=== PATIENT | female | born 1990 | race Caucasian/White ===

== ENCOUNTER → 2018-08-16 14:33 | Outpatient (CLI) | payer MEDICAID, SELFPAY ==
[2018-08-16 18:15] LABS: Chlamydia Trachomatis by PCR Negative (Negative); Neisserai gonorrhoeae by PCR Negative (Negative); Probe Check PASS; Sample Adequacy Control PASS; Specimen Processing Control PASS
[2018-08-23 14:19] LABS: HPV Reflexed? NOT INDICATED
== END ==
PROVIDERS: Visit Provider Obstetrics & Gynecology
DX: Z11.3 Encounter for screening for infections with a predominantly sexual mode of transmission (principal); Z12.4 Encounter for screening for malignant neoplasm of cervix
CPT/HCPCS: 87491; 87591; 88175; G0145

== ENCOUNTER → 2018-09-05 10:24 | Outpatient (CLI) | payer MEDICAID, SELFPAY ==
[2018-09-05 10:58] LABS: Color, Urine Straw (Yellow); Glucose, Dipstick Normal (Normal); Ketone-Dipstick Negative (Negative); Leukocyte Esterase-Dipstick Negative /ul (Negative); Nitrite-Dipstick Negative (Negative); Occult Blood-Urine Negative /ul (Negative); Protein-Dipstick Negative (Negative); Specific Gravity, Urine 1.005 (1.002-1.030); Urine Bilirubin Dipstick Negative (Negative); Urine Clarity Clear (Clear); Urine Urobilinogen Normal (Normal)
[2018-09-05 11:06] LABS: Absolute Lymphocyte Count 1.92 X10^3/ul (0.83-4.51); Absolute Neutrophil Count 4.8 X10^3/uL (2.0-7.7); Basophil# 0.03 X10^3/uL; Basophil% 0.4 % (0-1); Eosinophil# 0.07 X10^3/uL; Eosinophils% 0.9 % (0-5); Hematocrit 38.6 % (37-47); Hemoglobin 13.2 g/dl (12.0-15.0); Lymphocyte # 1.92 X10^3/ul (4.0); Mean Corp Hgb Conc 34.2 g/gl (32-36); Mean Corpuscular Hgb 31.5 pg (27.0-32.0); Mean Corpuscular Volume 92.1 fL (81-99); Monocyte# 0.51 X10^3/uL; Monocyte% 6.9 % (0-10); Neutrophil # 4.84 X10^3/uL (2.7-7.7); Neutrophil % 65.5 % (47-70); Platelet Count 190 K/mm3 (150-450); RBC Distribution Width CV 12.3 % (11.6-14.6); RBC Distribution Width SD 40.4 fl (35.1-43.9); Red Blood Count 4.19 M/mm3 (4.2-5.4); White Blood Count 7.4 K/mm3 (4.4-11.0)
[2018-09-05 11:07] LABS: POSITIVE COUNT NO; POSITIVE DIFFERENTIAL NO; POSITIVE MORPHOLOGY NO
[2018-09-05 11:20] LABS: Amphetamine Urine VISTA NEGATIVE (<1000 ng/mL); Barbiturate Urine VISTA NEGATIVE (< 200 ng/mL); Benzodiazepine Urine VISTA NEGATIVE (< 200 ng/mL); Cocaine Urine VISTA NEGATIVE (< 300 ng/mL); Ecstacy Urine VISTA NEGATIVE (< 500 ng/mL); Methadone Urine VISTA NEGATIVE (< 300 ng/mL); PCP Urine VISTA NEGATIVE (< 25 ng/mL); THC Urine VISTA POSITIVE (< 50 ng/mL)
[2018-09-05 11:31] LABS: COTININE Drug Screen Positive (<200 ng/mL); Vista UDS pH Range 6
[2018-09-05 11:42] LABS: Thyroid Stim Hormone (TSH) 0.81 uIU/mL (0.358-3.74)
[2018-09-05 14:10] LABS: HIV - WCH Non-Reactive (Nonreactive); Rubella IgG 36.9 IU/mL
[2018-09-06 12:32] LABS: HEPATITIS B SURFACE AG Negative (Negative); Hep C Antibodies <0.1 s/co ratio (0.0-0.9)
[2018-09-08 05:27] LABS: Prenatal RPR NONREACTIVE (NONREACTIVE)
== END ==
PROVIDERS: Visit Provider Obstetrics & Gynecology
DX: Z34.81 Encounter for supervision of other normal pregnancy, first trimester (principal)
CPT/HCPCS: 36415; 80307; 81002; 84443; 85025; 86703; 86762; 86803; 87340

== ENCOUNTER → 2018-12-13 16:21 | Outpatient (CLI) | payer MEDICAID, SELFPAY ==
[2015-02-25 14:26] VITALS: BMI 21.7
[2018-12-13 17:20] LABS: Hematocrit 35.3 % (37-47); Hemoglobin 12.3 g/dl (12.0-15.0); Mean Corp Hgb Conc 34.8 g/gl (32-36); Mean Corpuscular Volume 94.6 fL (81-99); Platelet Count 224 K/mm3 (150-450); RBC Distribution Width CV 12.7 % (11.6-14.6); RBC Distribution Width SD 42.6 fl (35.1-43.9); Red Blood Count 3.73 M/mm3 (4.2-5.4); White Blood Count 10.1 K/mm3 (4.4-11.0)
[2018-12-13 17:33] LABS: Scan Indicated on CBC? Y/N NO
[2018-12-13 17:43] LABS: Glucose Challenge Gest 1H 50g 124 mg/dL (70-140)
--- OUTSIDE RECORDS SUMMARY | 2019-02-14 18:47 | XMS RPT_ITS ---
:1990 Author Organization OHIP Care Team Providers Name Role Phone ASSESSMENT, HEALTH RISK Attending Unavailable ASSESSMENT, HEALTH RISK Referring Unavailable Zane Lewis Attending Unavailable ASSESSMENT, HEALTH RISK Attending Unavailable Dominik Gray Primary Care Unavailable ASSESSMENT, HEALTH RISK Attending Unavailable Dominik Gray Primary Care Unavailable Tonja Sanchez Attending Unavailable Dominik Gray Referring Unavailable Zane Lewis Attending Unavailable Zane Lewis Attending Unavailable PROBLEMS PROBLEMS DATE TYPE CONDITION / CODE ATTENDING STATUS SOURCE 12/13/2018 Unknown Z34.83 - Encounter Zane Lewis Active [facility] for supervision of Community other normal Hospital , third Repository trimester / Z34.83(ICD-10) 09/08/2018 Unknown Z34.81 - Encounter SealZane cruz Active [place] for supervision of Community other normal Hospital , first Repository trimester / Z34.81(ICD-10) 09/07/2018 Unknown Z11.3 - Encounter HughanthonyZane Active [place] for screening for Community infections with a Hospital predominantly Repository sexual mode of transmission / Z11.3(ICD-10) PROCEDURES PROCEDURES No Procedure Records FoundRESULTS RESULTS CBC-COMPLETE BLOOD CNT Collected: 12/13/2018 Status: F Source: [place] NO DIFF 4:35 PM [facility] REPOSITORY TYPE CODE TESTS RESULT OUT OF RANGE REFERENCE UNITS LAB L100.1000 4.4-11.0 K/mm3 Normal WBC 10.1 LAB L100.1200 4.2-5.4 M/mm3 Low RBC 3.73 LAB L100.1300 12.0-15.0 g/dl Normal HGB 12.3 LAB L100.1400 37-47 % Low HCT 35.3 LAB L100.1500 81-99 fL Normal MCV 94.6 LAB L100.1600 27.0-32.0 pg High MCH 33.0 LAB L100.1700 32-36 g/gl Normal MCHC 34.8 LAB L100.1810 11.6-14.6 % Normal RDW CV 12.7 LAB L100.1820 35.1-43.9 fl Normal RDW SD 42.6 LAB L100.1900 150-450 K/mm3 Normal PLT 224 LAB L100.2000 6.2-12.0 fl Normal MPV 11.0 Performed By: #### L100.0500 #### [facility] [address] [place], [place], [id number] GLUCOSE CHALLENGE GEST Collected: 12/13/2018 Status: F Source: [place] 1H 50G 4:35 PM [facility] REPOSITORY TYPE CODE TESTS RESULT OUT OF RANGE REFERENCE UNITS LAB L501.0250 70-140 mg/dL Normal GLU GEST 124 50g 1H Performed By: #### L501.0250 #### [facility] [address] [place], [address] HEP B SURFACE Collected: 12/13/2018 Status: F Source: [place] ANTIBODIES 3:55 PM [facility] REPOSITORY TYPE CODE TESTS RESULT OUT OF RANGE REFERENCE UNITS LAB L3100.0528 . Normal Hep B Reactive Morgan AB Result Comment: Non Reactive: Inconsistent with immunity, less than 10 mIU/mL Reactive: Consistent with immunity, greater than 9.9 mIU/mL Performed at: [facility] [id number] Bottom Man: Allen Buchanan PhD, Phone: [phone] Performed By: #### L3100.0528 #### [facility] (refer to report for specific site) refer to report for address and phone number URINE DRUG SCREEN Collected: 09/05/2018 Status: F Source: [place]E (VISTA) 10:28 AM [facility] REPOSITORY Order Comment: List of Drugs Taken or Suspected? UNK TYPE CODE TESTS RESULT OUT OF RANGE REFERENCE UNITS LAB L505.0075 TO BE Normal CONFIRMED Result Comment: CONFIRMATORY TESTING FOR ALL POSITIVE URINE DRUG SCREEN RESULTS WILL ONLY BE SENT OUT UPON PHYSICIAN ORDER. VISTA Urine Drug Screen methods provide only preliminary analytical test results. A more specific alternate chemical method must be used in order to obtain a confirmed analytical result. Gas chromatography/mass spectrometery (GC/MS) is the preferred confirmatory method. Clinical consideration and professional judgement should be applied to any drug of abuse test result, particularly when preliminary positive results are used. URINE TCA TESTING MUST BE ORDERED SEPARATELY. USE TEST MNEMONIC: [facility] LAB L505.5015 <1000 ng/mL AMPHETAMINES Normal NEGATIVE LAB L505.5025 < 200 ng/mL BARBITIURATES Normal NEGATIVE LAB L505.5035 < 200 ng/mL BENZODIAZIPINE Normal NEGATIVE LAB L505.5045 < 300 ng/mL COCAINE Normal NEGATIVE LAB L505.5055 < 500 ng/mL ECSTACY Normal NEGATIVE LAB L505.5065 < 300 ng/mL METHADONE Normal NEGATIVE LAB L505.5075 < 300 ng/mL OPIATES Normal NEGATIVE LAB L505.5085 < 25 ng/mL PCP Normal NEGATIVE LAB L505.5095 < 50 ng/mL High THC POSITIVE LAB L505.5005 VISTA UDS PH 6 Normal Performed By: #### L505.5000, L505.6240 #### [facility] [address] [place], [place], [address] NICOTINE URINE DRUG Collected: 09/05/2018 Status: F Source: [place] SCREEN 10:28 AM [facility] REPOSITORY Order Comment: List of Drugs Taken or Suspected? UNK TYPE CODE TESTS RESULT OUT OF RANGE REFERENCE UNITS LAB L505.6250 TO BE Normal CONFIRMED Result Comment: CONFIRMATORY TESTING FOR ALL POSITIVE URINE DRUG SCREEN RESULTS WILL ONLY BE SENT OUT UPON PHYSICIAN ORDER. The results of Urine Drug Screen methods provide only preliminary analytical test results. A more specific alternate chemical method must be used in order to obtain a confirmed analytical result. Gas chromatography/mass spectrometery (GC/MS) is the preferred confirmatory method. Clinical consideration and professional judgement should be applied to any drug of abuse test result, particularly when preliminary positive results are used. LAB L505.6270 <200 ng/mL High COT DRG Positive SCREEN Result Comment: Cotinine is the first-stage metabolite of Nicotine. Performed By: #### L505.5000, L505.6240 #### [facility] [address] [place], [address] URINALYSIS, ROUTINE Collected: 09/05/2018 Status: F Source: [place]E (DIPSTICK) 10:28 AM [facility] REPOSITORY Order Comment: How was Urine Obtained? Urine, Random TYPE CODE TESTS RESULT OUT OF RANGE REFERENCE UNITS LAB L400.3000 Yellow COLOR Normal Straw LAB L400.3050 Clear Normal CLARITY Clear LAB L400.3200 Normal mg/dl Normal GLUCOSE, UR Normal LAB L400.3300 Negative mg/dL Normal BILIRUBIN URINE Negative LAB L400.3400 Negative mg/dl Normal KETONE UR Negative LAB L400.3465 1.002-1.030 Normal SP.GR. DIPSTX 1.005 LAB L400.3550 5.0 - 8.0 pH UR Normal 7.0 LAB L400.3600 Negative mg/dl PROT Normal DIPSTX Negative LAB L400.3700 Normal mg/dl Normal UROBILI Normal LAB L400.3750 Negative Normal NITRITE UR Negative LAB L400.3780 Negative /ul Normal OCCULT BLOOD-UR Negative LAB L400.3800 Negative /ul LEUK Normal ESTERASE Negative Performed By: #### L400.2010 #### [facility] [address] [place], [place], [id number] CBC W/DIFF, AUTOMATED Collected: 09/05/2018 Status: F Source: [place]AYE 10:28 AM [facility] REPOSITORY TYPE CODE TESTS RESULT OUT OF RANGE REFERENCE UNITS LAB L100.1000 4.4-11.0 K/mm3 Normal WBC 7.4 LAB L100.1200 4.2-5.4 M/mm3 Low RBC 4.19 LAB L100.1300 12.0-15.0 g/dl Normal HGB 13.2 LAB L100.1400 37-47 % Normal HCT 38.6 LAB L100.1500 81-99 fL Normal MCV 92.1 LAB L100.1600 27.0-32.0 pg Normal MCH 31.5 LAB L100.1700 32-36 g/gl Normal MCHC 34.2 LAB L100.1810 11.6-14.6 % Normal RDW CV 12.3 LAB L100.1820 35.1-43.9 fl Normal RDW SD 40.4 LAB L100.1900 150-450 K/mm3 Normal PLT 190 LAB L100.2000 6.2-12.0 fl Normal MPV 11.0 LAB L100.2100 47-70 % Normal NEUT% 65.5 LAB L100.2200 19-41 % Normal LY% 26.0 LAB L100.2300 0-10 % Normal MONO% 6.9 LAB L100.2400 0-5 % Normal EO% 0.9 LAB L100.2500 0-1 % Normal BASO% 0.4 LAB L100.2550 0.0-0.9 % Normal IM GRAN % 0.300 Result Comment: IG% - Immature Granulocytes (promyelocytes, myelocytes and metamyelocytes) > 1% indicates that a LEFT SHIFT is Present. LAB L100.2620 2.0-7.7 X10 3/uL Normal Absolute Neut 4.8 LAB L100.2720 0.83-4.51 X10 3/ul Normal Absolute Lymph 1.92 Performed By: #### L100.0100 #### [facility] [address] [place], [place], [address] THYROID STIM HORMONE Collected: 09/05/2018 Status: F Source: KAYE (TSH) 10:28 AM [facility] REPOSITORY TYPE CODE TESTS RESULT OUT OF RANGE REFERENCE UNITS LAB L501.9520 0.358-3.74 uIU/mL Normal TSH 0.81 Performed By: #### L501.9520 #### [facility] [address] [place], [place], [id number] T AND S-NO Collected: 09/05/2018 Status: F Source: K[place]E CHARGE W/PNP 10:28 AM [facility] REPOSITORY Order Comment: Reason for Type AND Screen/Red Cells: Surgery? N TYPE CODE TESTS RESULT OUT OF RANGE REFERENCE UNITS LAB B10.0800 O Normal BLOOD POSITIVE TYPE GEL LAB B100.4050 Normal Ab SCREEN NEGATIVE GEL Performed By: #### B100.7550 #### [facility] [facility] [facility] [id number] RUBELLA IGG Collected: 09/05/2018 Status: F Source: [place]AYE 10:28 AM [facility] REPOSITORY TYPE CODE TESTS RESULT OUT OF RANGE REFERENCE UNITS LAB L509.4000 IU/mL Normal Rubella IgG 36.9 Result Comment: Antibody results Interpretation of Immune Status < 5 IU/ml Presumed Non-immune 5 - < 10 IU/ml Equivocal > or = 10 IU/ml Presumed Immune Performed By: #### L509.4000, L3890.6005 #### [facility] [facility] [place], [place], [id number] HIV - WCH Collected: 09/05/2018 Status: F Source: [place] 10:28 AM [facility] REPOSITORY TYPE CODE TESTS RESULT OUT OF RANGE REFERENCE UNITS LAB L3890.6005 Nonreactive Normal HIV - [facility] Non-Reactive Performed By: #### L509.4000, L3890.6005 #### [facility] [address] [place], [place], [address] HEPATITIS B SURFACE Collected: 09/05/2018 Status: F Source: KAYE AG 10:28 AM [facility] REPOSITORY TYPE CODE TESTS RESULT OUT OF RANGE REFERENCE UNITS LAB L3100.0400 Negative Normal HB Negative SURF AG Result Comment: Performed at: - [facility] [address] [id number] Bottom Man: Allen Buchanan PhD, Phone: [phone] Performed By: #### L3100.0390, L3100.0625 #### [facility] (refer to report for specific site) refer to report for address and phone number HEPATITIS C ANTIBODIES Collected: 09/05/2018 Status: F Source: CL[place] 10:28 AM [facility] REPOSITORY TYPE CODE TESTS RESULT OUT OF RANGE REFERENCE UNITS LAB L3100.0650 0.0-0.9 s/co ratio Normal HEP C AB <0.1 Result Comment: Negative: < 0.8 Indeterminate: 0.8 - 0.9 Positive: > 0.9 The CDC recommends that a positive HCV antibody result be followed up with a HCV Nucleic Acid Amplification test (840990). Performed By: #### L3100.0390, L3100.0625 #### [facility] (refer to report for specific site) refer to report for address and phone number RPR Collected: 09/05/2018 Status: F Source: [place] 10:28 AM [facility] REPOSITORY TYPE CODE TESTS RESULT OUT OF REFERENCE UNITS RANGE LAB L700.5100 NONREACTIVE Normal RPR NONREACTIVE Performed By: #### L700.5100 #### [facility] [address] [place], [place], [address] CT/NG WCH BY PCR Collected: 08/16/2018 Status: F Source: [place] 2:00 PM [facility] REPOSITORY Order Comment: CYTOLOGY INFORMATION: - CLINICAL INFORMATION: - DATE LMP/MENOPAUSE: 05-30-18 LMP - COLLECTION VIAL: Thin Prep Vial - FIBER PICKER SOURCE: CERVICAL/ENDOCERVICAL - COLLECTION TECHNIQUE: BRUSH/SPATULA TYPE CODE TESTS RESULT OUT OF RANGE REFERENCE UNITS LAB L8200.2100 Negative Normal Chlam Negative Trac PCR LAB L8200.2200 Negative Normal NG by Negative PCR Performed By: #### L8200.2000 #### [facility] [address] [place], [place], [address] PAP I-G W/RFX HRHPV Collected: 08/16/2018 Status: F Source: KAYE 2:00 PM [facility] REPOSITORY Order Comment: CYTOLOGY INFORMATION: - CLINICAL INFORMATION: - DATE LMP/MENOPAUSE: 05-30-18 LMP - COLLECTION VIAL: Thin Prep Vial - FIBER PICKER SOURCE: CERVICAL/ENDOCERVICAL - COLLECTION TECHNIQUE: BRUSH/SPATULA Specimen Comment: [id number] Specimen Comment: Source.............Cervix;Endocervix Specimen Comment: LMP / Prev Treat...[id number] Specimen Comment: Other.............. Specimen Comment: No. of containers..01 ThinPrep Vial TYPE CODE TESTS RESULT OUT OF RANGE REFERENCE UNITS LAB L7400.0800 . Normal DIAGN Comment Result Comment: NEGATIVE FOR INTRAEPITHELIAL LESION AND MALIGNANCY. FUNGAL ORGANISMS MORPHOLOGICALLY CONSISTENT WITH ARIANA SPECIES ARE PRESENT. LAB L7400.0900 . Normal ADEQ Comment Result Comment: Satisfactory for evaluation. Endocervical and/or squamous metaplastic cells (endocervical component) are present. LAB L7400.1400 . Normal PERFORM Comment Result Comment: Nik Morrison, Supervisor [employer] (ASCP) LAB L7400.2575 . Normal TEST METHOD Comment Result Comment: This liquid based ThinPrep(R) pap test was screened with the use of an image guided system. LAB L7400.2600 . Normal . COMM LAB L7400.2700 . Normal PAPSMR Comment Result Comment: The Pap smear is a screening test designed to aid in the detection of premalignant and malignant conditions of the uterine cervix. It is not a diagnostic procedure and should not be used as the sole means of detecting cervical cancer. Both false-positive and false-negative reports do occur. LAB L7400.2800 . Normal HPV RFLX Comment Result Comment: The HPV DNA reflex criteria were not met with this specimen result therefore, no HPV testing was performed. Performed at: [facility] [id number] Bottom Man: Sailaja Cordoba MD, Phone: [phone] Performed By: #### L7400.0350 #### [facility] (refer to report for specific site) refer to report for address and phone number HEP B SURFACE Collected: 03/01/2018 Status: F Source: KAYE ANTIBODIES EMP 11:05 AM [facility] TYPE CODE TESTS RESULT OUT OF RANGE REFERENCE UNITS LAB L3100.0537 . Normal Hep B Non Reactive Morgan AB Result Comment: Non Reactive: Inconsistent with immunity, less than 10 mIU/mL Reactive: Consistent with immunity, greater than 9.9 mIU/mL Performed at: [facility] [id number] Bottom Man: Allen Buchanan PhD, Phone: [phone] Performed By: #### L3100.0537 #### [facility] (refer to report for specific site) refer to report for address and phone number ALLERGIES ALLERGIES DATE TYPE / CODE NAME / CODE REACTION SEVERITY SOURCE 02/06/2015 Drug No Known Unknown [facility] Allergy/4160 Allergies/F00 Hospital [address]47(SNOMED 4981076(RXNOR Repository CT) M) ENCOUNTERS ENCOUNTERS ADMIT/DISCHARGE ACCOUNT ADMITTING ENCOUNTER LOCATION SOURCE NUMBER CLASS 12/13/2018 [id number] Ambulatory [place] [address] [place] ing:LABSPEC Repository 12/13/2018 [id number] [place] ing:LAB Repository 09/05/2018 [id number] Ambulatory [place] [address] [place] ing:WOBLAB Repository 08/16/2018 [id number] Ambulatory [place] ing:[facility] Repository 07/28/2018 [id number] Ambulatory [facility] [place] [facility] Hospital Repository 03/01/2018 [id number] Ambulatory [place] [address] [place] ing:EMPH Repository 01/30/2018 [id number] Ambulatory [place] ing:EMPH Repository PAYERS PAYERS ENCOUNTER GUARANTOR PAYER SUBSCRIBER SOURCE 12/13/2018 HENRY [id number] Primary NOT GIVENUNK [place] [facility] Insurance:SELF PAY [facility] [address]Qdo: (330) Number: Effective Repository [phone] () Date:2018-12-13 12/13/2018 HENRY [id number] Primary NOT GIVENUNK [place] [facility] Insurance:SELF PAY [facility] [address]Ieb: (330) Number: Effective Repository [phone] () Date:2018-12-13 09/05/2018 HENRY Ramirez [id number] Primary Insurance:[facility]RY [facility] [place] [place] Number: [id number] [address]Tqi: [phone] Repository [phone] () Date:[id number] [address] [address]EA: 09/05/2018 Secondary NOT GIVENUNK [place] Insurance:SELF PAY [facility] Number: Effective Repository Date:2018-09-05 08/16/2018 HENRY Ramirez [id number] Primary Insurance:[facility] HENRY Restrepo [facility] [place] Number: [id number] [address]Pjq: [phone] Repository [phone] () Date:[id number] [address] [address]Z: 08/16/2018 Secondary NOT GIVENUNK [place] Insurance:SELF PAY [facility] Number: Effective Repository Date:2018-08-16 07/28/2018 Henry Ashley [id number] Primary NOT GIVENUNK [place] [address] Insurance:SELF PAY [address] [address]Osi: (330) Number: Effective Repository [phone] () Date:2018-06-29 03/01/2018 Henry Ramirez [id number] Primary NOT GIVENUNK [place] [address] Insurance:SELF PAY [address] [address]Blo: (330) Number: Effective Repository [phone] () Date:2018-03-01 01/30/2018 Henry Ashley [id number] Primary NOT GIVENUNK [place] [address] Insurance:SELF PAY [address] [address]Ofy: (330) Number: Effective Repository [phone] () Date:2018-01-28
== END ==
PROVIDERS: Visit Provider Obstetrics & Gynecology
DX: Z34.83 Encounter for supervision of other normal pregnancy, third trimester (principal)
CPT/HCPCS: 36415; 82950; 85027

== ENCOUNTER → 2018-12-28 13:47 | Outpatient (CLI) | payer MEDICAID, SELFPAY ==
[2015-02-25 14:26] VITALS: BMI 21.7
== END ==
PROVIDERS: Visit Provider Obstetrics & Gynecology
DX: O23.43 Unspecified infection of urinary tract in pregnancy, third trimester (principal); Z3A.00 Weeks of gestation of pregnancy not specified
CPT/HCPCS: 87086

== ENCOUNTER → 2019-01-31 14:25 | Outpatient (CLI) | payer MEDICAID, SELFPAY | PROVIDERS: Visit Provider Obstetrics & Gynecology | DX: Z36.85 Encounter for antenatal screening for Streptococcus B (principal) | CPT/HCPCS: 87081 ==

== ENCOUNTER 2019-02-28 07:05 | Inpatient (IN) | payer MEDICAID, SELFPAY ==
[2015-02-25 14:26] VITALS: BMI 21.7
[2019-02-28 07:22] VITALS: BMI 26.6
[2019-02-28 07:58] LABS: Amphetamine Urine VISTA NEGATIVE (<1000 ng/mL); Barbiturate Urine VISTA NEGATIVE (< 200 ng/mL); Benzodiazepine Urine VISTA NEGATIVE (< 200 ng/mL); Cocaine Urine VISTA NEGATIVE (< 300 ng/mL); Ecstacy Urine VISTA NEGATIVE (< 500 ng/mL); Methadone Urine VISTA NEGATIVE (< 300 ng/mL); PCP Urine VISTA NEGATIVE (< 25 ng/mL); THC Urine VISTA POSITIVE (< 50 ng/mL); Vista UDS pH Range 7
[2019-02-28] MEDS: Lactated Ringers 1,000 ML 50 ML IV ×3 (08:15→17:35)
[2019-02-28] MEDS: Oxytocin 30 units/NS 500 ml 30 UNITS/500 ML IV.SOLN IV (08:27)
[2019-02-28 08:33] LABS: Absolute Lymphocyte Count 2.47 X10^3/ul (0.83-4.51); Absolute Neutrophil Count 5.4 X10^3/uL (2.0-7.7); Basophil# 0.02 X10^3/uL; Basophil% 0.2 % (0-1); Eosinophil# 0.12 X10^3/uL; Eosinophils% 1.4 % (0-5); Hematocrit 38.1 % (37-47); Hemoglobin 13.1 g/dl (12.0-15.0); Lymphocyte # 2.47 X10^3/ul (4.0); Lymphocyte % 28.5 % (19-41); Mean Corp Hgb Conc 34.4 g/gl (32-36); Mean Corpuscular Hgb 32.1 pg (27.0-32.0); Mean Corpuscular Volume 93.4 fL (81-99); Mean Platelet Vol. 10.8 fl (6.2-12.0); Monocyte# 0.61 X10^3/uL; Neutrophil # 5.41 X10^3/uL (2.7-7.7); Neutrophil % 62.4 % (47-70); Platelet Count 201 K/mm3 (150-450); RBC Distribution Width CV 13.4 % (11.6-14.6); RBC Distribution Width SD 45.4 fl (35.1-43.9); Red Blood Count 4.08 M/mm3 (4.2-5.4); White Blood Count 8.7 K/mm3 (4.4-11.0)
[2019-02-28 08:36] LABS: POSITIVE COUNT NO; POSITIVE DIFFERENTIAL NO; POSITIVE MORPHOLOGY NO
[2019-02-28] MEDS: Nalbuphine 10 MG/ML Ampul IV (11:37)
[2019-02-28] MEDS: fentaNYL-bupivacaine (epidural) 100 ML BAG EPIDURAL ×2 (14:08→17:41)
[2019-02-28] MEDS: Ondansetron 4 MG/2 ML Vial IV (15:04)
[2019-02-28] MEDS: fentaNYL 100 MCG/2 ML Ampul EPIDURAL (17:31)
--- NOTE | 2019-02-28 18:32 | PCM.PN.OB ---
Subjective: Now more comfortable. Objective: Afeb VSS FHR tracing CAT 1. - Physical Exam General: Alert, Oriented x3, Cooperative, No apparent distress Cardiovascular: Regular rate, Regular Rhythm Abdomen: Soft, Non Tender, Gravid, Appropriate for Gestational Age Extremities: No edema Skin: No rashes Neurological: Neuro grossly intact Psych/Mental Status: Normal Affect Comment: CE 9cm Weight: 160 lb 0.889 oz Body Mass Index (BMI) 26.6 Intake and Output for Last 24 Hours 02/26/19 02/27/19 02/28/19 23:59 23:59 23:59 Intake Total 2767 / 2767 Output Total 1700 / 1700 Balance 1067 / 1067 Laboratory Tests Past 24 Hrs 02/28/19 02/28/19 02/28/19 07:30 08:15 08:15 WBC 8.7 RBC 4.08 L Hgb 13.1 Hct 38.1 MCV 93.4 MCH 32.1 H MCHC 34.4 RDW 13.4 RDW Differential 45.4 H Plt Count 201 MPV 10.8 Immature Gran % (Auto) 0.500 Neut % (Auto) 62.4 Lymph % (Auto) 28.5 [place] % (Auto) 7.0 Eos % (Auto) 1.4 Baso % (Auto) 0.2 Absolute Neuts (auto) 5.4 Absolute Lymphs (auto) 2.47 Total Counted Not Reportable Urine Opiates Screen NEGATIVE Urine Methadone Screen NEGATIVE Ur Barbiturates Screen NEGATIVE Ur Phencyclidine Scrn NEGATIVE Ur Amphetamines Screen NEGATIVE U Methamphetamin-MDMA NEGATIVE U Benzodiazepines Scrn NEGATIVE Urine Cocaine Screen NEGATIVE U Cannabinoids Screen POSITIVE H Ur Drug Screen Comment Blood Type O POSITIVE Antibody Screen NEGATIVE Medical Necessity - Tobacco Use Smoking Status: Former smoker Assessment/Plan Progressing in labor. Expect to start pushing efforts soon.
--- NOTE | 2019-02-28 18:36 | DCINST_ITS ---
Discharge Diet: No Restrictions Discharge Activity: Return to Normal Activity Return to work on:: 04/30/19 May shower in (days): 0 May resume sexual activity in: 4-6 weeks Call your doctor if your incision/area has: Sudden Increased Bleeding, Foul Smelling Discharge Call your doctor if you observe: Fever of 101 or Higher, Inability to urinate, Inability to have a bowel movement, Using more than one pad per hour, Shortness of breath, Chest pain, Calf discomfort, Uncontrolled pain Cleanse incision/area with: Soap & Water Additional Instructions: If you experience any of the following, contact your healthcare provider. * Bleeding that soaks a pad every hour for 2 hours * Fever 100.4 or higher * Unrelieved incision or abdominal pain * Swelling, redness, discharge or bleeding from your incision or episiotomy site * Your incision begins to separate * Problems urinating (including inability to urinate or burning while urinating). * Visual changes * Severe headache * Flu-like symptoms * Pain or redness in one of both of your breasts * Pain, warmth, tenderness or swelling in your legs, especially the calf area * Frequent nausea and vomiting * Symptoms of depression or anxiety If you experience any of the following, call 911 or go to the nearest Emergency Room. * Chest pain * Problems breathing * Seizure activity * Partial or complete paralysis of a body part, slurred speech, weakness or drooping of the face, or a sudden inability to walk or hold your balance Allergies/Adverse Reactions: Allergies No Known Allergies Allergy (Verified 02/28/19 07:22) Medications to take at Discharge DiphenhydrAMINE [Benadryl] 50 mg PO QHS PRN PRN 02/28/19 Docusate Sodium [Colace] 100 mg PO BID 02/28/19 Ibuprofen 600 mg PO 4X/DAY #30 tab 02/28/19 Ondansetron HCl [Zofran] 4 mg PO Q6H PRN PRN 02/28/19 Vits [Prenatabs FA ] 1 tablet PO DAILY 02/28/19 The following prescriptions were given: Ibuprofen 600 mg PO 4X/DAY #30 tab Please Follow Up With: Zane Lewis MD When: 6 weeks Test Results: Test results from this visit will be discussed in further detail at your follow- up appointment, if applicable. Proposed Discharge Date: 03/02/19
[2019-02-28] MEDS: Oxytocin 30 units/NS 500 ml 30 UNITS/500 ML IV.SOLN 334 UNITS IV (19:19)
--- NOTE | 2019-02-28 19:31 | PCM.OPRPT ---
Vaginal Delivery Maternal Presentation: Elective Induction 39w1d ega admitted for elective induction of labor Method of Induction: Pitocin Amniotic Membrane Rupture Type: Artificial Rupture of Membrane time: 1200 Amniotic Fluid Description: Clear Final SERAFIN: 03/06/19 Final SERAFIN Source: US <20 weeks Gestational age: 39 Weeks and 1 Days Date of Procedure: 02/28/19 Pre-Operative Diagnosis: labor Post-Operative Diagnosis: same Surgery/ Procedure Performed: Spontaneous Vaginal Delivery Anesthesiologist: Corky Meek Type of Anesthesia: Epidural Description of Procedure: Progressed to FD then pushed for about 20 minutes to deliver a live male without complication. At delivery the nose and mouth were suctioned with a bulb suction. Delayed cord clamping was employed. Cord bloods were collected. The placenta wa delivered spontaneously intact. The uterus contracted well. Inspection revealed a small posterior vaginal/perineal tear which was repaired with 3-0 vicryl. Presentation: Vertex Placental Delivery Description: Spontaneous Placenta Disposition: [facility] Percentage of Placenta Abruption: 0 Cord Vessel Description: 3 Vessels Nuchal Cord Compression: Without compression Cord Entanglement: None Drain: Palafox to straight drain Estimated Blood Loss: 350cc Infant A gender: Male (1 minute): 7 (5 minute): 9 Episiotomy Description: None Laceration: Midline, Perineal Extension/lac, Vaginal Extension/lac, 1st degree Medications given after delivery: IV Pitocin Complications: None
[2019-02-28] MEDS: Oxytocin 30 units/NS 500 ml 30 UNITS/500 ML IV.SOLN 167 UNITS IV (19:49)
[2019-02-28] MEDS: Ibuprofen 600 MG Tablet PO (20:19)
[2019-02-28] MEDS: Acetaminophen 500 MG Tablet 1000 MG PO (21:08)
[2019-02-28] MEDS: 0.9% Saline Lock 10 ML Syringe IV (21:27)
[2019-02-28 23:54] VITALS: BP 114/68; PULSE 87; RESP 16; TEMP 36.2; O2SAT 98
[2019-02-28] MEDS: Senna/Docusate Sodium 1 Tablet PO (23:58)
[2019-02-28] MEDS: Hydrocortisone 2.5% Crm 1 APPLIC TOPICAL (23:58)
[2019-02-28] MEDS: oxyCODONE 5 MG Tablet PO (23:58)
[2019-03-01] MEDS: Ibuprofen 600 MG Tablet PO ×4 (02:35→21:47)
[2019-03-01 04:20] VITALS: BP 111/55; PULSE 87; RESP 16; TEMP 36.9; O2SAT 97
[2019-03-01] MEDS: oxyCODONE 5 MG Tablet PO ×4 (04:26→19:42)
[2019-03-01 05:35] LABS: Hemoglobin 10.1 g/dl (12.0-15.0); Mean Corp Hgb Conc 33.7 g/gl (32-36); Mean Corpuscular Hgb 31.8 pg (27.0-32.0); Mean Corpuscular Volume 94.3 fL (81-99); Mean Platelet Vol. 11.4 fl (6.2-12.0); Platelet Count 173 K/mm3 (150-450); RBC Distribution Width CV 12.8 % (11.6-14.6); Red Blood Count 3.18 M/mm3 (4.2-5.4)
[2019-03-01 05:38] LABS: Scan Indicated on CBC? Y/N NO
[2019-03-01] MEDS: Dibucaine 30 GM Tube 1 APPLIC TOPICAL (06:37)
[2019-03-01] MEDS: Acetaminophen 500 MG Tablet 1000 MG PO (06:37)
--- NOTE | 2019-03-01 07:43 | PCM.PROGNOTE ---
Subjective: Some vaginal/perineal soreness. Some lower abdominal cramping. Breast feeding. Lochia appropriate. Objective: Afeb VSS - Physical Exam General: Alert, Oriented x3, Cooperative, No apparent distress Lungs: Clear to auscultation, Normal air movement Cardiovascular: Regular rate, Regular Rhythm Abdomen: Soft, Non Tender, Non-Distended, - - Fundus firm nontender Extremities: No edema Psych/Mental Status: Normal Affect Comment: Lochia appropriate Vital Signs Temp Pulse Resp BP Pulse Ox 98.4 F 87 16 111/55 L 97 03/01/19 04:20 03/01/19 04:20 03/01/19 04:20 03/01/19 04:20 03/01/19 04:20 Oxygen Delivery Method Room Air Weight: 160 lb 0.889 oz Body Mass Index (BMI) 26.6 Intake and Output for Last 24 Hours 02/27/19 02/28/19 03/01/19 23:59 23:59 23:59 Intake Total 3281 / 3281 Output Total 2250 / 2250 350 / 350 Balance 1031 / 1031 -350 / -350 Laboratory Tests Past 24 Hrs 02/28/19 02/28/19 02/28/19 07:30 08:15 08:15 WBC 8.7 RBC 4.08 L Hgb 13.1 Hct 38.1 MCV 93.4 MCH 32.1 H MCHC 34.4 RDW 13.4 RDW Differential 45.4 H Plt Count 201 MPV 10.8 Immature Gran % (Auto) 0.500 Neut % (Auto) 62.4 Lymph % (Auto) 28.5 Mobile % (Auto) 7.0 Eos % (Auto) 1.4 Baso % (Auto) 0.2 Absolute Neuts (auto) 5.4 Absolute Lymphs (auto) 2.47 Total Counted Not Reportable Urine Opiates Screen NEGATIVE Urine Methadone Screen NEGATIVE Ur Barbiturates Screen NEGATIVE Ur Phencyclidine Scrn NEGATIVE Ur Amphetamines Screen NEGATIVE U Methamphetamin-MDMA NEGATIVE U Benzodiazepines Scrn NEGATIVE Urine Cocaine Screen NEGATIVE U Cannabinoids Screen POSITIVE H Ur Drug Screen Comment Blood Type O POSITIVE Antibody Screen NEGATIVE 03/01/19 04:28 WBC 11.0 RBC 3.18 L Hgb 10.1 L Hct 30.0 L MCV 94.3 MCH 31.8 MCHC 33.7 RDW 12.8 RDW Differential 42.0 Plt Count 173 MPV 11.4 Immature Gran % (Auto) Neut % (Auto) Lymph % (Auto) Mobile % (Auto) Eos % (Auto) Baso % (Auto) Absolute Neuts (auto) Absolute Lymphs (auto) Total Counted Urine Opiates Screen Urine Methadone Screen Ur Barbiturates Screen Ur Phencyclidine Scrn Ur Amphetamines Screen U Methamphetamin-MDMA U Benzodiazepines Scrn Urine Cocaine Screen U Cannabinoids Screen Ur Drug Screen Comment Blood Type Antibody Screen Medical Necessity - Tobacco Use Smoking Status: Former smoker Assessment/Plan Will use cetacaine spray and hydrocortisone for perineal and hemorrhoidal discomfort. Otherwise doing well on PP day#1. Continue routine PP care.
[2019-03-01 08:20] VITALS: BP 117/72; PULSE 80; RESP 18; TEMP 36.3
[2019-03-01] MEDS: Senna/Docusate Sodium 1 Tablet PO (10:41)
[2019-03-01 12:12] VITALS: BP 133/82; PULSE 100; RESP 18; TEMP 36.2; O2SAT 98
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
--- NOTE | 2019-03-01 16:10 | CASEMGMT ---
Addendum entered by Kika Hernandez 03/02/19 14:07: Reviewed and approved SW student leadership intern documentation. JENNIFER Hudson Original Note: Social Work Labor and Delivery Report made to Children Services in [facility] at [phone] and spoke with Jazmyne. Visited MOB to inform that CPS will be contacting her by phone per her request to be informed. MOB was also provided Community Action brochure, [employer] Mom's group inforamtion, and other community mom's groups. Emotional support provided. No other services indicated or requested at this time. -Leigh Ann Watson, POLICE DEPARTMENT SECRETARY Student Bicycle Racer.
[2019-03-01 16:19] VITALS: BP 122/74; PULSE 98; RESP 18; TEMP 36.2; O2SAT 98
[2019-03-01 19:45] VITALS: BP 109/60; PULSE 87; RESP 16; TEMP 36.4; O2SAT 96
[2019-03-02 01:35] VITALS: BP 108/61; PULSE 92; RESP 16; TEMP 36.5
[2019-03-02] MEDS: oxyCODONE 5 MG Tablet PO ×2 (01:36→07:58)
[2019-03-02] MEDS: Ibuprofen 600 MG Tablet PO (04:55)
[2019-03-02] MEDS: Senna/Docusate Sodium 1 Tablet PO (07:59)
--- NOTE | 2019-03-02 08:03 | PCM.PROGNOTE ---
Subjective: Some vaginal soreness. Bleeding light. breast feeding. Objective: Afeb VSS - Physical Exam General: Alert, Oriented x3, Cooperative, No apparent distress Lungs: Clear to auscultation, Normal air movement Cardiovascular: Regular rate, Regular Rhythm Abdomen: Soft, Non Tender, Non-Distended, - - Fundus firm nontender Extremities: No edema Neurological: Neuro grossly intact Psych/Mental Status: Normal Affect Comment: Lochia light Vital Signs Temp Pulse Resp BP Pulse Ox 97.7 F L 92 16 108/61 96 03/02/19 01:35 03/02/19 01:35 03/02/19 01:35 03/02/19 01:35 03/01/19 19:45 Oxygen Delivery Method Room Air Weight: 160 lb 0.889 oz Body Mass Index (BMI) 26.6 Intake and Output for Last 24 Hours 02/28/19 03/01/19 03/02/19 23:59 23:59 23:59 Intake Total 3281 / 3281 Output Total 2250 / 2250 350 / 350 Balance 1031 / 1031 -350 / -350 Medical Necessity - Tobacco Use Smoking Status: Former smoker Assessment/Plan Doing well on PP day#2. Cleared for discharge home today. Home going instructions and warnings given.
--- NOTE | 2019-03-02 08:10 | PCM.DC.SUM ---
Discharge Date and Diagnosis Date of Admission: 02/28/19 Date of Discharge: 03/02/19 - Primary Discharge Diagnosis s/p Hospital Course and Treatment Consultations 02/28/19 07:47 Consult: Anesthesia Routine Comment: Reason For Exam: labor Operations: None Procedures: - - Pitocin induction, , epidural Summary of Care Provided: The patient is a 28 year old F admitted for elective induction of labor. Pitocin induction resulted in uncomplicated . Post course was unremarkable. Discharged home on PP day#2.[] - Physical Exam Vital Signs Temp Pulse Resp BP Pulse Ox 97.7 F L 92 16 108/61 96 03/02/19 01:35 03/02/19 01:35 03/02/19 01:35 03/02/19 01:35 03/01/19 19:45 Oxygen Delivery Method Room Air Weight: 160 lb 0.889 oz Body Mass Index (BMI) 26.6 Intake and Output for Last 24 Hours 02/28/19 03/01/19 03/02/19 23:59 23:59 23:59 Intake Total 3281 / 3281 Output Total 2250 / 2250 350 / 350 Balance 1031 / 1031 -350 / -350 Discharge Diet: No Restrictions Discharge Activity: Return to Normal Activity Return to work on:: 04/30/19 May shower in (days): 0 May resume sexual activity in: 4-6 weeks Call your doctor if your incision/area has: Sudden Increased Bleeding, Foul Smelling Discharge Call your doctor if you observe: Fever of 101 or Higher, Inability to urinate, Inability to have a bowel movement, Using more than one pad per hour, Shortness of breath, Chest pain, Calf discomfort, Uncontrolled pain Cleanse incision/area with: Soap & Water Home Medications: Medications to take at Discharge DiphenhydrAMINE [Benadryl] 50 mg PO QHS PRN PRN 02/28/19 Docusate Sodium [Colace] 100 mg PO BID 02/28/19 Ibuprofen 600 mg PO 4X/DAY #30 tab 02/28/19 Ondansetron HCl [Zofran] 4 mg PO Q6H PRN PRN 02/28/19 Vits [Prenatabs FA ] 1 tablet PO DAILY 02/28/19 Oxycodone [Oxyir] 5 - 10 mg PO Q4H PRN PRN 7 Days #20 tab 03/02/19 Following Prescrptions Were Given to Patient: Oxycodone [Oxyir] 5 - 10 mg PO Q4H PRN PRN 7 Days #20 tab PRN Reason: Mod-Severe Pain () Ibuprofen 600 mg PO 4X/DAY #30 tab Please Follow Up With: Zane Lewis MD When: 6 weeks Disposition: Home Minutes spent on discharge:: 15 Patient Condition:: Good Medical Necessity - Tobacco Use Smoking Status: Former smoker Meaningful Use Info Meaningful Use Diagnoses (Choose all that apply): None applicable
[2019-03-02 08:15] VITALS: BP 123/79; PULSE 102; RESP 18; TEMP 36.7; O2SAT 97
--- NOTE | 2019-03-06 00:03 | NURSING ---
Follow up phone call made and Mom doing well with and recovery. Asia LOTT
== END 2019-03-02 09:30 | disposition home or self-care (01) | DRG 560 ==
PROVIDERS: Admitting Provider Obstetrics & Gynecology; Referring Provider Obstetrics & Gynecology; Visit Provider Obstetrics & Gynecology
DX: O75.89 Other specified complications of labor and delivery (principal); O70.0 First degree perineal laceration during delivery; Z3A.39 39 weeks gestation of pregnancy; Z37.0 Single live birth; Z87.891 Personal history of nicotine dependence
CPT/HCPCS: 59025; 59050; 80307; 85025; 85027; 86850; 86900; 99218; J7120; A4216; G0378; J2405

== ENCOUNTER 2019-08-05 17:53 | Emergency (ER) | payer MEDICAID, SELFPAY ==
[2019-03-22 11:26] VITALS: BMI 26.6
[2019-08-05 17:55] VITALS: BP 142/90; PULSE 131; RESP 26; TEMP 36.8; O2SAT 99; BMI 20.2
--- NOTE | 2019-08-05 18:08 | ED.VISSUMM ---
- ER Visit Summary Date of Service: 08/05/19 Chief Complaint: Lateral hand spasms History of Present Illness: The patient is a 29 F past medical history of kidney stone. Patient states 4:00 today she had onset of bilateral hand cramping. Denies a panic attack. No prior history. No nausea, vomiting, diarrhea or fever. Otherwise she has no other complaints. She states she is been eating and drinking normally. Physical Examination: Young female no distress vital signs are stable she is afebrile. HEENT exam unremarkable. Neck nontender. No lymphadenopathy. Lungs clear to auscultation bilaterally. Heart tachycardic no murmur. Abdomen soft nontender no bowel sounds no peritoneal signs. Extremities moves all 4. She is cramping in her hands. However she has normal cap refill radial pulse and touch sensation bilaterally. Calves are nontender without edema. Neurologically she is awake alert with no focal motor or sensory deficits. Test Results: CBC shows white count of 11. H&H 14 and 41. Electrolytes sodium 134. Potassium 3.1. Normal BUN and creatinine normal gap. Normal calcium of 9. Emergency Department Course and Treatment: Patient treated with a liter normal saline. Repeat exam at 2030 patient is doing well. Her carpopedal spasm of her hands is resolved. She denied states that she got an argument with her mom and dad are concerned so this may be secondary to hyperventilation. Treatment Plan: Follow-up with PCP or return if worse. Disposition: Discharge Impression: Bilateral hand cramping secondary to hyperventilation syndrome This note was generated with [employer] dictation software. It may contain incorrect words, spelling, and punctuation that were not noted in review of the chart prior to signing ED Disposition - Plan for ED Patient: Referrals: Wilman Castle DO [COURTESY STAFF PHYSICIAN] -
[2019-08-05] MEDS: 0.9% Normal Saline 1,000 ML 1000 ML IV (18:21)
[2019-08-05 18:25] LABS: Absolute Neutrophil Count 8.7 X10^3/uL (2.0-7.7); Basophil# 0.09 X10^3/uL; Basophil% 0.8 % (0-1); Eosinophil# 0.04 X10^3/uL; Eosinophils% 0.4 % (0-5); Hematocrit 41.4 % (37-47); Hemoglobin 14.2 g/dL (12.0-15.0); Lymphocyte % 16.7 % (19-41); Mean Corp Hgb Conc 34.3 g/dL (32-36); Mean Corpuscular Hgb 30.7 pg (27.0-32.0); Mean Corpuscular Volume 89.4 fL (81-99); Mean Platelet Vol. 10.4 fl (6.2-12.0); Monocyte# 0.69 X10^3/uL; NRBC Flagged by Analyzer 0 % (0-5); Neutrophil # 8.65 X10^3/uL (2.7-7.7); Neutrophil % 75.7 % (47-70); Platelet Count 255 K/mm3 (150-450); RBC Distribution Width CV 12.9 % (11.6-14.6); RBC Distribution Width SD 42.4 fl (35.1-43.9); Red Blood Count 4.63 M/mm3 (4.2-5.4); White Blood Count 11.4 K/mm3 (4.4-11.0)
[2019-08-05 18:37] LABS: Anion Gap 8 (5-15); BUN 9 mg/dL (7-18); BUN/Creat Ratio 10.6 RATIO (10-20); Calcium,Total 9.3 mg/dL (8.5-10.1); Chloride 100 mmol/L (98-107); Creatinine, Serum 0.85 mg/dL (0.55-1.02); EST Glomerular Filtration Rate 85 mL/min (>60); Est Glom Filt Rate - Afr Amer 102 mL/min (>60); Estimated Creatinine Clearance 88.51 ml/min; Glucose 118 mg/dL (74-106); Potassium 3.1 mmol/L (3.5-5.1); Sodium Level 134 mmol/L (136-145)
[2019-08-05 19:53] VITALS: BP 122/80; PULSE 83; RESP 16; O2SAT 98
[2019-08-05] MEDS: Ondansetron 4 MG/2 ML Vial IV (19:59)
--- NOTE | 2019-08-05 20:40 | ED.DEP ---
ED Disposition - Plan for ED Patient: Disposition: Home or Assisted Living Instructions: Hyperventilation Syndrome Referrals: Wilman Castle DO [COURTESY STAFF PHYSICIAN] - As Needed Additional Instructions: Fluids and rest. Return if worse. Follow-up with your doctor as needed.
[2019-08-05 20:47] VITALS: RESP 14
== END 2019-08-05 20:48 | disposition home or self-care (01) ==
PROVIDERS: Emergency Provider Emergency Medicine
DX: F45.8 Other somatoform disorders (principal); Z87.442 Personal history of urinary calculi; Z72.0 Tobacco use; F12.90 Cannabis use, unspecified, uncomplicated
CPT/HCPCS: 80048; 85025; 96361; 96374; 99283; J7030; A4216; J2405

== ENCOUNTER 2019-08-06 17:13 | Emergency (ER) | payer MEDICAID, SELFPAY ==
[2019-08-05 17:55] VITALS: BMI 20.2
[2019-08-06 17:15] VITALS: BP 132/101; PULSE 113; RESP 18; TEMP 36.8; O2SAT 95; BMI 20.1
--- NOTE | 2019-08-06 18:54 | CT_ITS ---
STUDY: CT BRAIN WITHOUT CONTRAST REASON FOR EXAM: Female, 29 years old. Headache. Trauma 3 days ago. RADIATION DOSAGE (If Supplied By Facility): CTDIvol = ( 44.99 ) mGy, DLP = ( 745.49 ) mGycm TECHNIQUE: Transaxial CT imaging of the brain was performed without administration of intravenous contrast material. Individualized dose optimization techniques were used for this CT. COMPARISON: No relevant priors. FINDINGS: Normal soft tissue structures. Normal calvarium. Normal size ventricles and extra-axial spaces for the patient's age. Normal white matter tracts of the cerebral hemispheres. Normal basal ganglia and thalami. Normal brainstem. Normal cerebellum. There is no intracranial hemorrhage. There are no findings of an acute ischemic infarction. There is a rounded opacity within the left maxillary sinus that likely reflect a mucous retention cyst or polyp. There is partial opacification of the ethmoid sinuses. CT/Brain/Head without Contrast IMPRESSION: No acute intracranial process. Partial opacification of the ethmoid sinuses consistent with a history of sinusitis. Electronically Signed: Claudine Carrero MD at 19:33 EDT Tel , Service support ,
--- NOTE | 2019-08-06 18:55 | ED.VIS.INJ ---
History of Present Illness Chief Complaint: Fatigue Informant: Patient, Significant Other Onset: Days - August 05 Mechanism/Context: Blunt Injury, Fall Quality of Pain: Dull, Aching, Throbbing, - - Left frontal Location: Left frontal Current Severity: Moderate Maximum Severity: Severe Worsened by: Nausea and vomiting, headache, concussive symptoms Relieved by: Nothing Associated Symptoms: Loss of consciousness. Negative for: Parasthesias, Weakness, Loss of function Length of loss of consciousness: Brief Narrative: Patient is a 29-year-old female who apparently was upset on Tuesday. She admits she was drinking. She fell backwards hitting her head. She was unresponsive according to significant other. He stated her eyes were rolled back. She fell again striking her head left frontal. She reports trouble with vision, fatigue, nausea and vomiting and not feeling well. She was seen yesterday. Report was read. Patient has symptoms consistent with hyperventilation syndrome. Tetanus Immunization: <5 years Prior similar symptoms: Yes Recent Illness/Hospitalization: Yes - Past Medical History (1) No significant past medical history Status: Acute Past Medical History - Allergies and Home Meds Allergies/Adverse Reactions: Allergies No Known Allergies Allergy (Verified 08/06/19 19:04) Primary Care Physician: Ana Rosa Pascual DO [Primary Care Provider] - Prior records reviewed: Yes Surgical History: no surgical history Lives: With Family Smoking Status: Current every day smoker Alcohol: Occasional Drugs: None Review of Systems General: Reports: Malaise Eyes: Reports: Visual changes - bilaterally. Denies: Blurred Vision - bilaterally, Diplopia ENT: Denies: Bilateral ear pain, Rhinorrhea, Sore throat Cardiovascular: Denies: Chest pain, Palpitations Respiratory: Denies: Dyspnea, Cough, Dyspnea on exertion Gastrointestinal: Reports: Nausea, Vomiting. Denies: Abdominal pain, Diarrhea, Constipation, Melena, Hematochezia, -, - Genitourinary: Denies: Dysuria, Hematuria, Frequency Musculoskeletal: Denies: Myalgias, Arthralgias, Neck pain, Back pain, Swelling, Extremity Pain, -, - Skin: Denies: Rash, Wounds Neurological: Reports: Headache, Parasthesia - Yesterday Hematologic: Denies: Easy bruising, Easy bleeding Allergy: Denies: Uticaria, Swelling of the mouth Physical Exam Vital Signs/Narrative: Vital Signs Temp Pulse Resp BP Pulse Ox 08/06/19 17:15 98.2 F 113 H 18 132/101 H 95 Inital Vital Signs reviewed: Yes General: Well nourished, Well developed Head: Normocephalic, Trauma, Tenderness - Occiput and left forehead superior left brow Eyes: Perrl, EOMI, - - No evidence of subconjunctival hemorrhage.. Negative for: Pale conjunctiva, Scleral icterus ENT: TM's clear, No hemotympanum or drainage, No trauma. Negative for: Hemotympanum, Otorrhea, Nasal trauma, Nasal septal hematoma Neck: Nontender, Full ROM. Negative for: Spinal Tenderness Cardiovascular: Regular rate, Regular rhythm, No murmurs, Normal S1, Normal S2 Abdomen: Soft, Nontender, Nondistended, Normal bowel sounds Back: Nontender. Negative for: CVA Tenderness - Right, CVA Tenderness - Left, Spinal Tenderness Skin: Normal color, No rash, Trauma - Superior left brow Neurological: Alert, Oriented x3, Cranial nerves II-XII grossly intact, Normal Strength, Normal Sensation, Normal DTR - There is no clonus. She with tracks to Babinski testing Psychological: Normal affect - Glascow Coma Scale Eye Opening: Spontaneous Motor: Obeys Commands Verbal: Oriented Coma Scale Total: 15 Diagnostic/Tx/Re-eval Chest X-Ray - ED: Read by ED Physician, Read by Radiologist Impressions Brain CT 08/06/19 18:54 IMPRESSION: No acute intracranial process. Partial opacification of the ethmoid sinuses consistent with a history of sinusitis. Electronically Signed: Claudine Carrero MD at 19:33 EDT Tel , Service support , 08/06/19 18:54 CT Head [Brain/Head without Contrast] [CT] Stat - Medical Decision Making Return visit history of loss of consciousness with headache and nausea and vomiting will obtain CT of the head to evaluate for intracranial bleed i.e. subdural, epidural, subarachnoid hemorrhage or intraparenchymal contusion. Otherwise, patient's symptoms are consistent with postconcussive syndrome. He was treated with Zofran ODT. Last normal menses 1 week ago. His CAT scan is normal she will be discharged with prescription for Zofran for persistent nausea. History and physical exam is consistent with concussion with loss of consciousness ED Disposition - Plan for ED Patient: Disposition: Home or Assisted Living Diagnosis: Concussion with loss of consciousness <= 30 min Instructions: CONCUSSION, No Wake Up Referrals: Ana Rosa Pascual DO [Primary Care Provider] - 10-14 Days if not better
[2019-08-06] MEDS: Ondansetron ODT 4 MG Tablet PO (19:03)
--- NOTE | 2019-08-06 19:58 | ED.VISSUMM ---
- ER Visit Summary Date of Service: 08/06/19 Chief Complaint: [] History of Present Illness: The patient is a 29 F [] Physical Examination: [] Test Results: [] Emergency Department Course and Treatment: [] Treatment Plan: [] Disposition: [] Impression: [] This note was generated with [employer] dictation software. It may contain incorrect words, spelling, and punctuation that were not noted in review of the chart prior to signing ED Disposition - Plan for ED Patient: Disposition: Home or Assisted Living Diagnosis: Concussion with loss of consciousness <= 30 min Instructions: CONCUSSION, No Wake Up Prescriptions: Ondansetron [Zofran Odt] 4 mg PO Q8H PRN PRN #10 tab PRN Reason: Nausea Prescription Printed Referrals: Ana Rosa Pascual DO [Primary Care Provider] - 10-14 Days if not better
[2019-08-06 20:05] VITALS: BP 104/77; PULSE 62; RESP 15; O2SAT 99
== END 2019-08-06 20:11 | disposition home or self-care (01) ==
PROVIDERS: Emergency Provider Emergency Medicine
DX: S06.0X1A Concussion with loss of consciousness of 30 minutes or less, initial encounter (principal); W01.10XA Fall on same level from slipping, tripping and stumbling with subsequent striking against unspecified object, initial encounter; Y93.9 Activity, unspecified; Y92.89 Other specified places as the place of occurrence of the external cause; Y99.9 Unspecified external cause status; J32.2 Chronic ethmoidal sinusitis; F17.200 Nicotine dependence, unspecified, uncomplicated; F10.10 Alcohol abuse, uncomplicated; Y90.9 Presence of alcohol in blood, level not specified
CPT/HCPCS: 70450; 99284

== ENCOUNTER → 2019-10-29 19:36 | Outpatient (CLI) | payer MEDICAID, SELFPAY ==
--- NOTE | 2019-10-29 19:40 | RAD_ITS ---
STUDY: X-RAY - PELVIS AND RIGHT HIP REASON FOR EXAM: Female, 29 years old. Pain TECHNIQUE: 3 views of the pelvis and right hip. COMPARISON: None. FINDINGS: There is a non-specific bowel gas pattern. Normal visualized soft tissue structures. Normal bilateral iliac wings, sacroiliac joints and visualized sacrum. Normal bilateral superior and inferior pubic rami. Normal pubic symphysis. Normal bilateral ischial tuberosities. Normal visualized femoral head. Normal acetabulum. Normal hip joint. RAD/HIP, UNI W/ Pelvis 2-3 Views IMPRESSION: Normal x-ray examination of the pelvis and right hip. Electronically Signed: Sam Cooney, at 21:41 EST Tel , Service support ,
== END ==
PROVIDERS: Referring Provider Nurse Practitioner Family; Visit Provider Nurse Practitioner Family
DX: M25.551 Pain in right hip (principal)
CPT/HCPCS: 73502